=== PATIENT | male | born 1970 | race Caucasian/White ===

== ENCOUNTER 2025-04-15 16:58 | Emergency (ER) | payer BC ==
[~2025-04-15] VITALS: Ht 182.8 cm; Wt 113.4 kg
[2025-04-15] MEDS ORDERED: Bacitracin Zinc 14 GM TUBE T ONE (17:25)
[2025-04-15] MEDS ORDERED: Sulfamethoxazole/Trimethopri 1 TAB TAB PO ONE (17:25)
[2025-04-15] MEDS ORDERED: Lidocaine Hydrochloride 5 ML AMP SC ONE (17:25)
[2025-04-15] MEDS ORDERED: Tdap Vaccine 0.5 ML SYR (Adult Vaccine) IM ONE (17:25)
[2025-04-15] MEDS ORDERED: SEPTDS PO (18:51)
== END 2025-04-15 18:53 | disposition home or self-care (01) ==
LOC: ED 16:58
DX: S61.212A Laceration without foreign body of right middle finger without damage to nail, initial encounter (principal); Z88.0 Allergy status to penicillin; X58.XXXA Exposure to other specified factors, initial encounter; Y93.89 Activity, other specified; Y92.89 Other specified places as the place of occurrence of the external cause; Y99.8 Other external cause status